=== PATIENT | male | born 2000 | race African-American/Black ===

== ENCOUNTER 2021-09-17 13:37 | Outpatient (CLI) | payer OTHER, SELFPAY | END 2021-09-17 23:59 | disposition home or self-care (01) | PROVIDERS: Visit Provider Family Medicine | DX: Z23 Encounter for immunization (principal) ==

== ENCOUNTER 2021-09-28 20:53 | Emergency (ER) | payer OTHER, SELFPAY ==
[2021-09-28 20:54] VITALS: BP 163/87; PULSE 97; RESP 18; TEMP 36.9; O2SAT 96; BMI 23.1
[2021-09-28 20:57] VITALS: BP 163/87; PULSE 97; RESP 18; TEMP 36.9; O2SAT 96
--- NOTE | 2021-09-28 21:04 | EDS_ITS ---
HPI History of Present Illness Chief Complaint: Palpitations Detail of Chief Complaint: Palpitations past 3 days, epigastric pain and chest pain Informant: patient Onset/Context/Timing Onset: Today (Chest pain started approximately 3 hours ago) and Days (The palpitations and epigastric pain started 3 days ago) Activity at onset: sudden Timing: Intermittent (The chest discomfort that started today lasted for 2 hours and described as discomfort) Quality: Positive for Aching Location: Substernal (Discomfort that started) Current Severity: Gone Maximum Severity: Moderate Worsened By: - (The gastric pain was worse when supine.) Relieved By: Nothing Associated Symptoms: Positive for Palpitations; Negative for Nausea, Vomiting, Diaphoresis, Dyspnea, Cough, Fever, Lightheadedness and Acid Reflux Narrative Narrative: 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 He presents because of epigastric pain that started 3 days ago with palpitations. The epigastric pain is worse when he is supine. He denies intolerance any types of food. Denies history of hiatal hernia, peptic ulcer disease or GERD. He denies sour eructation. He describes as a discomfort. Does not radiate. He denies intolerance to greasy or fried foods. Patient does report by ocular blurred vision with past 3 weeks. There is a family history of diabetes. He admits to increased urination over the past week or 2. Patient denies fever, chills night sweats. Patient denies history of VTE and has no risk factors. Patient denies leg pain, swelling discoloration. Patient denies dyspnea or dyspnea on exertion. The discomfort that he had in his chest was not pleuritic. He denies black or maroon-colored stool. He denies hematochezia. There is no history of trauma. Prior Similar Symptoms: No CVD Risk Factors: Negative for Hypertension, Diabetes, Hypercholesterolemia, Family History 1' </=55 and Smoking PE Risk Factors: Negative for Recent Travel/Surgery, Recent Immobilization, Prior DVT or PE, Cancer and OCP + Smoking + >/=35 TAD Risk Factors: Negative for Marfan's Syndrome, Hypertension and Family History [facility] Medical History Bipolar disorder Depression Home Medications lansoprazole [Prevacid] 30 mg PO DAILY #14 cap 09/28/21 [Rx Last Taken Unknown] Allergy/AdvReac Type Severity Reaction Status Date / Time No Known Allergies Allergy Verified 09/28/21 20:58 Family History (Updated 09/28/21 @ 21:[address] Misael Conrad MD) Other Diabetes Surgical History no surgical history no surgical history Social History (Updated 09/28/21 @ 21:[address] Misael Conrad MD) household members: family Smoking Status: Never smoker alcohol intake: never substance use type: does not use ROS ROS ED Constitutional Constitutional ED: Denies chills, fever(s), subjective, sweats or weight loss Eyes Eyes: Denies none ENT ENT ED: Denies ear pain, rhinorrhea or sore throat Cardiovascular Cardiovascular: Reports as per HPI, chest pain and palpitations; Denies orthopnea or paroxysmal nocturnal dyspnea Respiratory/Chest Respiratory/Chest: Denies cough, dyspnea, dyspnea on exertion, orthopnea or paroxysmal nocturnal dyspnea Gastrointestinal Gastrointestinal: Reports abdominal pain; Denies diarrhea, nausea or vomiting Genitourinary Genitourinary ED: Denies dysuria, hematuria or urinary frequency Musculoskeletal Musculoskeletal: Denies arthralgias, myalgias or neck pain Integumentary Denies rash Neurologic Neurologic: Denies headache(s) or weakness Psychiatric Psychiatric: Reports depression Endocrine Endocrinology: Reports polydipsia and polyuria; Denies polyphagia EXAM Physical Exam Const Vital Signs: 09/28/21 20:54 09/28/21 20:57 09/28/21 21:03 Temperature 98.4 F 98.4 F Temperature Source Temporal Temporal Pulse Rate 97 97 Respiratory Rate 18 18 Respiratory Effort Normal Blood Pressure 163/87 H 163/87 H Blood Pressure Mean 112 112 Pulse Ox 96 96 Oxygen Delivery Method Room Air Room Air Positive well nourished and well developed General Appearance ED: well developed, NAD and other Patient has a flat affect. ; Negative for pallor HEENT Reports TM's clear and moist mucous membranes HEENT Narrative: Uvula is midline. There is no erythema or exudate. normocephalic and atraumatic Tympanic Membrane ED: Yes TM's clear Eyes PERRL and EOMs intact bilaterally General Eye ED: Negative for pale conjunctiva or scleral icterus Neck no lymphadenopathy, supple and no JVD Chest Wall inspection of chest normal and palpation of chest normal Resp normal respiratory effort Effort and Inspection: respiratory distress Cardio regular rate, regular rhythm, S1 normal heart sound, S2 normal heart sound and no murmurs GI normal to inspection, nondistended, normoactive bowel sounds, soft to palpation, non-tender and non-distended; Negative for hepatosplenomegaly GI Narrative: Negative for clinical Tompkins sign. Back/Spine no CVA tenderness Extremity normal to inspection General Extremety ED: Negative for edema, pulses abnormal or tenderness General Extremity: Negative for edema or pulses abnormal Neuro oriented x3 and CN's II-XII intact bilaterally Sensorium / Orientation: awake and alert Psych Psych Narrative: Affect is flat mood is depressed Skin no rashes or lesions noted and no wounds General Skin Exam: Negative for jaundice or pallor MDM MDM MDM Narrative Medical decision making narrative: Patient presents with symptoms are suggestive of reflux. With family history of diabetes by ocular blurred vision with polyuria and polydipsia will obtain basic metabolic panel to assess glucose, anion gap and electrolytes. CBC to rule out anemia. EKG was obtained to rule out evidence of pericarditis since he complains of the pain being worse when he supine. There was no friction rub noted. D-dimer was not obtained since patient is PERC negative. Father does have history of hypertension. He has never been told he has high blood pressure. He was [facility] and have blood pressure checked in a week. He was placed on a PPI since he is reporting the pain is markedly better with his bed at a 30 degree angle. Patient was not started on antihypertensive meds since he is never been told he had high blood pressure and there is no evidence of endorgan injury. Lab Data Attestation: I reviewed the patient's lab results. Lab results narrative: White count, H&H and differential are normal. Comprehensive metabolic panel is unremarkable. Lipase is normal. Labs: Laboratory Results - last 24 hr 09/28/21 09/28/21 21:22 21:22 WBC 7.0 RBC 5.29 Hgb 15.6 Hct 44.5 MCV 84.1 MCH 29.5 MCHC 35.1 RDW Std Deviation 35.6 RDW Coeff of Cheryle 11.8 Plt Count 328 MPV 9.7 Immature Gran % (Auto) 0.300 Neut % (Auto) 56.7 Lymph % (Auto) 32.4 [place] % (Auto) 9.3 Eos % (Auto) 1.0 Baso % (Auto) 0.3 Absolute Neuts (auto) 4.0 Absolute Lymphs (auto) 2.26 Nucleated RBC % 0 Sodium 139 Potassium 5.0 Chloride 107 Carbon Dioxide 27.0 Anion Gap 5 BUN 12 Creatinine 0.98 Estim Creat Clear Calc 120.24 Est GFR (MDRD) Af Amer 124 Est GFR (MDRD) Non-Af 102 BUN/Creatinine Ratio 12.2 Glucose 99 Calcium 9.4 Total Bilirubin 0.40 AST 22 ALT 11 L Alkaline Phosphatase 79 Total Protein 8.6 H Albumin 3.7 Globulin 4.9 H Albumin/Globulin Ratio 0.8 L Lipase 78 EKG Initial EKG: Attestation: I personally reviewed and interpreted this EKG as follows: Interpretation: Sinus Rhythm (Ventricular rate is 90. There is respiratory variance. LA interval 230. QRS duration 94 ms. QT duration 246 ms. [place] is normal. The EKG is normal.) Discharge Plan Triage Chief Complaint: Palpitations ED Provider: [place] Dx/Rx/DC Orders Clinical Impression: Acute epigastric pain, Central chest pain, BP (high blood pressure) Instructions: GERD Lifestyle Changes, ED Hypertension, To Be Confirmed, ED Epigastric Pain Uncertain Cause Prescriptions: New lansoprazole [Prevacid] 30 mg capsule,delayed release(DR/EC) 30 mg PO DAILY Qty: 14 RF: 0 Primary Care Provider: Care Physician,No Primary Referrals: [facility] [GROUP OF PHYSICIANS] - 1 Week (Systolic blood pressure ranged from 1 57-1 62 and diastolic varies between 75 and 92. There is no evidence of endorgan injury. If blood pressure remains elevated did when reassessed should start on antihypertensive meds.) Care Physician,No Primary [Primary Care Provider] - Disposition Disposition: Home, Self Care
--- NOTE | 2021-09-28 21:04 | EKG12_ITS ---
Test Reason : PALPS Blood Pressure : / mmHG Vent. Rate : 090 BPM Atrial Rate : 090 BPM P-R Int : 130 ms QRS Dur : 094 ms QT Int : 346 ms P-R-T Axes : 067 061 039 degrees QTc Int : 423 ms Normal sinus rhythm with sinus arrhythmia Normal ECG Confirmed by DONTAE SIERRA, SHELBY ([id number]), photography editor DARWIN LONG ([id number]) on 09/30/2021 9:39:48 AM Referred By: CURT Confirmed By:SHELBY DIGGS MD
[2021-09-28 21:38] LABS: Absolute Lymphocyte Count 2.26 X10^3/uL (0.83-4.51); Basophil# 0.02 X10^3/uL; Basophil% 0.3 % (0-1); Eosinophil# 0.07 X10^3/uL; Hematocrit 44.5 % (40-54); Hemoglobin 15.6 g/dL (13.0-16.5); Lymphocyte # 2.26 X10^3/ul (0.83-4.51); Lymphocyte % 32.4 % (19-41); Mean Corp Hgb Conc 35.1 g/dL (32-36); Mean Corpuscular Hgb 29.5 pg (27.0-32.0); Mean Corpuscular Volume 84.1 fL (80-94); Mean Platelet Vol. 9.7 fl (6.2-12.0); Monocyte# 0.65 X10^3/uL; Monocyte% 9.3 % (0-10); NRBC Flagged by Analyzer 0 % (0-5); Neutrophil # 3.95 X10^3/uL (2.7-7.7); Neutrophil % 56.7 % (47-70); Platelet Count 328 K/mm3 (150-450); RBC Distribution Width CV 11.8 % (11.6-14.6); RBC Distribution Width SD 35.6 fl (35.1-43.9); Red Blood Count 5.29 M/mm3 (4.6-6.2)
[2021-09-28 21:47] LABS: ALB/GLOB Ratio 0.8 RATIO (0.9-2.4); AST(SGOT) 22 U/L (15-37); Alanine Aminotransfer ALT/SGPT 11 U/L (16-61); Albumin, Serum 3.7 g/dL (3.2-5.0); Alkaline Phosphatase 79 U/L (45-117); Anion Gap 5 (5-15); BUN 12 mg/dL (7-18); BUN/Creat Ratio 12.2 RATIO (10-20); Calcium,Total 9.4 mg/dL (8.5-10.1); Chloride 107 mmol/L (98-107); Creatinine, Serum 0.98 mg/dL (0.70-1.30); EST Glomerular Filtration Rate 102 mL/min (>60); Est Glom Filt Rate - Afr Amer 124 mL/min (>60); Estimated Creatinine Clearance 120.24 ml/min; Globulin 4.9 g/dL (2.2-4.2); Glucose 99 mg/dL (74-106); Lipase 78 U/L (73-393); Protein, Total 8.6 g/dL (6.4-8.2); Sodium Level 139 mmol/L (136-145)
[2021-09-28 21:51] VITALS: BP 148/97; PULSE 91; RESP 20; O2SAT 96
[2021-09-28 22:06] VITALS: BP 153/85; PULSE 70; RESP 19; O2SAT 98
== END 2021-09-28 22:10 | disposition home or self-care (01) ==
PROVIDERS: Emergency Provider Emergency Medicine; Visit Provider Emergency Medicine
DX: R10.13 Epigastric pain (principal); R07.89 Other chest pain; R03.0 Elevated blood-pressure reading, without diagnosis of hypertension
CPT/HCPCS: 80053; 83690; 85025; 93005; 99284; A4216